=== PATIENT | female | born 1960 | race African-American/Black ===

== ENCOUNTER 2016-11-17 04:10 | Emergency (ER) | payer OTHER ==
[~2016-11-17] VITALS: Ht 167.6 cm; Wt 74.0 kg
[~2016-11-17 04:10] MED LIST: 1-ME1LIQ PO; ASPI81TA82 PO; HYDR-2768 PO; LISI-360 PO; OXYC20TA26 PO
[2016-11-17 04:13] VITALS: BP 216/129; PULSE 93; RESP 18; TEMP 98.2; O2SAT 97
[2016-11-17] MEDS ORDERED: LISI10TA3 PO (04:43)
[2016-11-17] MEDS ORDERED: HYDR25TA5 PO (04:43)
[2016-11-17] MEDS ORDERED: ASPI-110 PO (04:43)
[2016-11-17] MEDS ORDERED: OXYC20TA17 PO (04:43)
[2016-11-17 04:44] VITALS: BP 174/91; PULSE 80; RESP 16; O2SAT 100
[2016-11-17] MEDS ORDERED: ERYTOIN10 RIGHT EYE (05:48)
[2016-11-17] MEDS ORDERED: ACET500T36 PO (05:48)
--- NOTE | 2016-11-17 05:49 | PD ---
HPI Chief Complaint: Eye Problems/Injury Time Seen by Provider: 04:25 Travel History International Travel<30 days: No Contact w/Intl Traveler<30days: No Traveled to known affect area: No History of Present Illness HPI 56yo F with PMH of HTN presents to the ED with c/o foreign body sensation in right eye when she woke up this morning. She thinks an eyelash may have gotten inside her right eye. Denies any visual changes, trauma, fever, chest pain, sob , n/v, abdominal pain, weakness or numbness. PFSH Past Medical History Heart Rhythm Problems: No Cardiac Catheterization: No Cardiovascular Problems: Yes (HTN) High Cholesterol: No Congestive Heart Failure: No Diabetes: No Hypertension: Yes Menopausal: Yes : 6 Para: 6 Past Surgical History Abdominal Surgery: Yes (GASTRIC BYPASS) Section: Yes (X2) Cholecystectomy: Yes Gynecologic Surgery: Yes () Social History Alcohol Use: No Tobacco Use: Yes (1/2 PPD) Substance Use: No Allergies-Medications (Allergen,Severity, Reaction): Coded Allergies: No Known Allergies (Verified , 11/17/16) Reported Meds & Prescriptions Reported Meds & Active Scripts Active Reported Oxycontin (Oxycodone HCl) 20 Mg Tab 20 Mg PO Q12HR Lisinopril 10 Mg Tab 10 Mg PO DAILY Hydrochlorothiazide 25 Mg Tab 25 Mg PO DAILY Aspirin 81 (Aspirin) 81 Mg Tabdr 81 Mg PO DAILY Review of Systems Except as stated in HPI: all other systems reviewed are Neg Physical Exam Narrative GENERAL: 56yo F not in distress. SKIN: Warm and dry. HEAD: Atraumatic. Normocephalic. EYES: Right eye: Pupil reactive at 4mm. Injected conjunctiva. EOMI. No foreign body visualized under eyelid. Wood's lamp exam with fluorescene revealed +Corneal abrasion at 9 o'clock. ENT: No nasal bleeding or discharge. Mucous membranes pink and moist. NECK: Trachea midline. No JVD. CARDIOVASCULAR: Regular rate and rhythm. No murmur appreciated. RESPIRATORY: No accessory muscle use. Clear to auscultation. Breath sounds equal bilaterally. GASTROINTESTINAL: Abdomen soft, non-tender, nondistended. MUSCULOSKELETAL: No obvious deformities. No clubbing. No cyanosis. No edema. NEUROLOGICAL: Awake and alert. No obvious cranial nerve deficits. Motor grossly within normal limits. Normal speech. PSYCHIATRIC: Appropriate mood and affect; insight and judgment normal. Data Data Last Documented VS Vital Signs Date Time Temp Pulse Resp B/P Pulse Ox O2 Delivery O2 Flow Rate FiO2 11/17/16 04:44 80 16 174/91 100 Room Air 11/17/16 04:13 98.2 MDM Medical Decision Making Medical Screen Exam Complete: Yes Emergency Medical Condition: Yes Differential Diagnosis Corneal abrasion vs. foreign body under eyelid Narrative Course 56yo F with foreign body sensation in right eye. Visual acuity 20/20 in right eye. Pt found to have flourescene uptake in right eye. Pt wants to go home and denies any other complaints. Pt initially very hypertensive and repeat blood pressure without any medication showed improvement to 174/91. Pt has history of HTN and has not taken her HTN medications for 3 days. Instructed pt to take them and follow up with PMD. Diagnosis Primary Impression: Corneal abrasion Qualified Code: S05.01XA - Corneal abrasion, right, initial encounter Patient Instructions: General Instructions Departure Forms: Tests/Procedures Additional Instructions: Please follow up with lead radiation therapist in 3-7 days. Return to the ED if symptoms worsen. Med/Other Pt SpecificInfo: Prescription(s) given Scripts Acetaminophen (Acetaminophen Extra Strength)500 Mg [id number] Mg PO Q6H PRN (PAIN SCALE 1 TO 4) #20 TAB Ref 0 Prov:Giselle Barrera DO 11/17/16 Erythromycin Opth Oint 5 Mg/Gm Oint1 Applic RIGHT EYE BID 7 Days Ref 0 Prov:Giselle Barrera DO 11/17/16 Disposition: 01 DISCHARGE HOME Condition: Stable Giselle Barrera DO Nov 17, 2016 05:49
== END 2016-11-17 06:22 | disposition home or self-care (01) ==
LOC: NEPC 04:10
DX: S05.01XA Injury of conjunctiva and corneal abrasion without foreign body, right eye, initial encounter (principal); F17.210 Nicotine dependence, cigarettes, uncomplicated; I10 Essential (primary) hypertension; Z98.84 Bariatric surgery status; X58.XXXA Exposure to other specified factors, initial encounter
CPT/HCPCS: 99283

== ENCOUNTER 2018-02-10 17:43 | Observation (INO) | payer OTHER ==
[~2018-02-10] VITALS: Ht 167.6 cm; Wt 63.5 kg
[~2018-02-10 17:43] MED LIST changes: -1-ME1LIQ PO; +ACET500T36 PO; +ASPI1TAB57 PO; -ASPI81TA82 PO; +ERYTOIN10 RIGHT EYE; -HYDR-2768 PO; +HYDR25TA5 PO; -LISI-360 PO; +LISI10TA3 PO; +OXYC20TA17 PO; -OXYC20TA26 PO
[2018-02-10] MEDS ORDERED: IOHEXOL 350 MG/ML 10 ML VIAL (for RAD DIAG) IVCONTRAST ONE (17:44)
[2018-02-10 17:47] VITALS: BP 190/117; PULSE 94; RESP 18; TEMP 98; O2SAT 99
[2018-02-10] MEDS ORDERED: SODIUM CHLOR 0.9% 1000 ML INJ 1,000 ML IV SCH ×2 (17:54→22:31)
[2018-02-10] MEDS ORDERED: PROCHLORPERAZINE INJ 10 MG/2 ML VIAL IV PUSH ONE ×2 (18:00→20:00)
[2018-02-10] MEDS ORDERED: SODIUM CHLORIDE 0.9% FLUSH 10 ML FLUSH IV FLUSH PRN ×2 (18:00→22:45)
[2018-02-10] MEDS ORDERED: MORPHINE SULFATE 8 MG/ML INJ IV PUSH ONE (18:00)
[2018-02-10] MEDS ORDERED: diphenhydrAMINE HCL 50 MG/ML VIAL IV PUSH ONE (18:00)
[2018-02-10 18:11] LABS: AUTOMATED NEUTROPHIL # 5.4 TH/MM3 (1.8-7.7); BASOPHIL % 0.4 % (0.0-2.0); EOSINOPHIL # 0.1 TH/MM3 (0-0.4); EOSINOPHIL % 0.9 % (0.0-4.0); HEMATOCRIT 41.7 % (35.0-46.0); HEMOGLOBIN 14.4 GM/DL (11.6-15.3); LYMPHOCYTE # 2.3 TH/MM3 (1.0-4.8); MEAN CELL VOLUME 96.9 FL (80.0-100.0); MEAN CORPUSCULAR HEMOGLOBIN 33.5 PG (27.0-34.0); MEAN CORPUSCULAR HGB CONC 34.6 % (32.0-36.0); MEAN PLATELET VOLUME 7.4 FL (7.0-11.0); MONO % 4.8 % (0.0-8.0); MONOCYTE # 0.4 TH/MM3 (0-0.9); NEUT % 65.9 % (16.0-70.0); PLATELET COUNT 219 TH/MM3 (150-450); RED CELL DISTRIBUTION WIDTH 13.6 % (11.6-17.2); WHITE BLOOD COUNT 8.2 TH/MM3 (4.0-11.0)
[2018-02-10 18:12] VITALS: BP 187/91; PULSE 69; RESP 18; O2SAT 93
[2018-02-10 18:32] LABS: ALKALINE PHOSPHATASE 249 U/L (45-117); TOTAL BILIRUBIN ADULT 0.6 MG/DL (0.2-1.0); TOTAL PROTEIN 7.3 GM/DL (6.4-8.2)
--- NOTE | 2018-02-10 18:32 | PD ---
HPI Chief Complaint: Abdominal Pain Time Seen by Provider: 17:54 Travel History International Travel<30 days: No Contact w/Intl Traveler<30days: No Traveled to known affect area: No History of Present Illness HPI This is a 57-year-old female with a history of hypertension, status post gastric bypass, who presents today with complaints of abdominal pain with associated nausea vomiting. Patient states it woke her up at 3:00 this morning. She states that she has been vomiting ever since. She does report that she had a bowel movement this morning. She denies any constipation. She denies any fevers, chills. Patient reports normal urine output. She denies any previous history of pain such as this. She denies any chest pain, chest pressure. There are no other complaints at the time of my examination. PFSH Past Medical History Heart Rhythm Problems: No Cardiac Catheterization: No Cardiovascular Problems: Yes (HTN) High Cholesterol: No Congestive Heart Failure: No Diabetes: No Hypertension: Yes ?: Not Menopausal: Yes : 6 Para: 6 Past Surgical History Abdominal Surgery: Yes (GASTRIC BYPASS) Section: Yes (X2) Cholecystectomy: Yes Gynecologic Surgery: Yes () Social History Alcohol Use: No Tobacco Use: Yes (1/2 PPD) Substance Use: No Allergies-Medications (Allergen,Severity, Reaction): Coded Allergies: No Known Allergies (Verified Allergy, Unknown, 02/10/18) Reported Meds & Prescriptions Reported Meds & Active Scripts Active Reported Methadone (Methadone HCl) 40 Mg Tab 105 Mg PO DAILY Lisinopril 10 Mg Tab 10 Mg PO DAILY Hydrochlorothiazide 25 Mg Tab 25 Mg PO DAILY Aspirin 81 (Aspirin) 81 Mg Tabdr 81 Mg PO DAILY Review of Systems Except as stated in HPI: all other systems reviewed are Neg General / Constitutional: No: Fever, Chills HENT: No: Headaches, Lightheadedness, Neck Pain Cardiovascular: No: Chest Pain or Discomfort, Palpitations, Irregular Rhythm Respiratory: No: Cough, Shortness of Breath Gastrointestinal: Positive: Nausea, Vomiting, Abdominal Pain (Supraumbilical epigastric), No: Diarrhea Genitourinary: No: Frequency, Dysuria Musculoskeletal: No: Weakness, Pain Skin: No Rash Neurologic: No: Weakness, Dizziness, Headache Physical Exam Narrative GENERAL: Well-developed well-nourished female in no acute respiratory distress. Patient complaining of abdominal pain and dry heaving when I entered the room. SKIN: Focused skin assessment warm/dry. HEAD: Atraumatic. Normocephalic. EYES: Pupils equal and round. No scleral icterus. No injection or drainage. ENT: No nasal bleeding or discharge. Mucous membranes pink and moist. NECK: Trachea midline. Supple. CARDIOVASCULAR: Regular rate and rhythm. No murmur appreciated. RESPIRATORY: No accessory muscle use. Clear to auscultation. Breath sounds equal bilaterally. GASTROINTESTINAL: Abdomen soft, nondistended. Subjective tenderness in her supraumbilical and epigastric area. No rebound or guarding elicited. No pulsatile masses. MUSCULOSKELETAL: No obvious deformities. No clubbing. No cyanosis. No edema. NEUROLOGICAL: Awake and alert complaining of pain. No obvious cranial nerve deficits. Motor grossly within normal limits. Normal speech. Data Data Last Documented VS Vital Signs Date Time Temp Pulse Resp B/P (MAP) Pulse Ox O2 Delivery O2 Flow Rate FiO2 02/10/18 21:11 81 18 153/90 (111) 98 Room Air 02/10/18 17:47 98.0 Orders Orders Complete Blood Count With Diff (02/10/18 17:54) Comprehensive Metabolic Panel (02/10/18 17:54) Lipase (02/10/18 17:54) Urinalysis - C+S If Indicated (02/10/18 17:54) Iv Access Insert/Monitor (02/10/18 17:54) Ecg Monitoring (02/10/18 17:54) Oximetry (02/10/18 17:54) Sodium Chlor 0.9% 1000 Ml Inj (Ns 1000 M (02/10/18 17:54) Sodium Chloride 0.9% Flush (Ns Flush) (02/10/18 18:00) Electrocardiogram (02/10/18 17:54) Abdomen, Upright Only (02/10/18 17:54) Chest, Single Ap (02/10/18 17:54) Morphine Inj (Morphine Inj) (02/10/18 18:00) Prochlorperazine Inj (Compazine Inj) (02/10/18 18:00) Diphenhydramine Inj (Benadryl Inj) (02/10/18 18:00) Oral Contrast - Adult (02/10/18 18:30) Diatrizoildefonso Cardenas (Md Alcazar Liq) (02/10/18 19:19) Morphine Inj (Morphine Inj) (02/10/18 19:45) Ondansetron Inj (Zofran Inj) (02/10/18 20:00) Ct Abd/Pel W Iv Contrast(Rout) (02/10/18 19:47) Hydromorphone Pf Inj (Dilaudid Pf Inj) (02/10/18 20:00) Prochlorperazine Inj (Compazine Inj) (02/10/18 20:00) Lorazepam Inj (Ativan Inj) (02/10/18 20:30) Sodium Chlorid 0.9% 500 Ml Inj (Ns 500 M (02/10/18 20:30) Iohexol 350 Inj (Omnipaque 350 Inj) (02/10/18 17:44) Admit Order (Ed Use Only) (02/10/18 21:41) Labs Laboratory Tests Test 02/10/18 17:55 02/10/18 19:44 White Blood Count 8.2 TH/MM3 Red Blood Count 4.30 MIL/MM3 Hemoglobin 14.4 GM/DL Hematocrit 41.7 % Mean Corpuscular Volume 96.9 FL Mean Corpuscular Hemoglobin 33.5 PG Mean Corpuscular Hemoglobin Concent 34.6 % Red Cell Distribution Width 13.6 % Platelet Count 219 TH/MM3 Mean Platelet Volume 7.4 FL Neutrophils (%) (Auto) 65.9 % Lymphocytes (%) (Auto) 28.0 % Monocytes (%) (Auto) 4.8 % Eosinophils (%) (Auto) 0.9 % Basophils (%) (Auto) 0.4 % Neutrophils # (Auto) 5.4 TH/MM3 Lymphocytes # (Auto) 2.3 TH/MM3 Monocytes # (Auto) 0.4 TH/MM3 Eosinophils # (Auto) 0.1 TH/MM3 Basophils # (Auto) 0.0 TH/MM3 CBC Comment DIFF FINAL Differential Comment Blood Urea Nitrogen 11 MG/DL Creatinine 0.89 MG/DL Random Glucose 98 MG/DL Total Protein 7.3 GM/DL Albumin 3.7 GM/DL Calcium Level 9.0 MG/DL Alkaline Phosphatase 249 U/L Aspartate Amino Transf (AST/SGOT) 146 U/L Alanine Aminotransferase (ALT/SGPT) 132 U/L Total Bilirubin 0.6 MG/DL Sodium Level 142 MEQ/L Potassium Level 3.7 MEQ/L Chloride Level 104 MEQ/L Carbon Dioxide Level 29.9 MEQ/L Anion Gap 8 MEQ/L Estimat Glomerular Filtration Rate 80 ML/MIN Lipase 112 U/L Urine Color LIGHT-YELLOW Urine Turbidity CLEAR Urine pH 7.5 Urine Specific [place] 1.009 Urine Protein NEG mg/dL Urine Glucose (UA) NEG mg/dL Urine Ketones 10 mg/dL Urine Occult Blood TRACE Urine Nitrite NEG Urine Bilirubin NEG Urine Urobilinogen LESS THAN 2.0 MG/DL Urine Leukocyte Esterase NEG Urine RBC 5 /hpf Urine WBC LESS THAN 1 /hpf Urine Squamous Epithelial Cells 1 /hpf Urine Mucus FEW /lpf Microscopic Urinalysis Comment CULT NOT INDICATED MDM Medical Decision Making Medical Screen Exam Complete: Yes Emergency Medical Condition: Yes Differential Diagnosis Gastroenteritis versus diverticulitis versus bowel obstruction versus appendicitis versus peptic ulcer disease Narrative Course 57-year-old female presents with severe abdominal pain. Patient reports associated nausea vomiting. She states the pains been present since 3 AM. White blood cell count is within normal limits. The patient is afebrile. Patient will be signed out to Dr. Edie Manzo. She will follow-up on CTs and and electrolytes. Diagnosis Primary Impression: Abdominal pain Additional Impressions: Nausea & vomiting Study of gastric bypass Scripts Sennosides-Docusate Sodium (Docusate Sodium & Senna S 8.6-50 mg) 8.6 Mg-50 Mg Tab 1 TAB PO BID for Constipation for 60 Days, #120 TAB Prov: Sonia Gracia 02/11/18 Thiamine HCl (Gnp Vitamin B-1) 100 Mg Tab 100 MG PO DAILY for Nutritional Supplement, #30 TAB Prov: Sonia Gracia 02/11/18 Domenico Dyson MD February 10, 2018 18:32
--- NOTE | 2018-02-10 18:36 | RADRPT ---
EXAM DATE/TIME: 02/10/2018 18:13 [facility] COMPARISON: CHEST SINGLE AP, July 11, 2016, 2:36. INDICATIONS : Shortness of breath. MEDICAL HISTORY : Chronic obstructive pulmonary disease. Smoker. SURGICAL HISTORY : None. ENCOUNTER: Initial ACUITY: 1 day PAIN SCORE: 0/10 LOCATION: Bilateral chest FINDINGS: A single view of the chest demonstrates the lungs to be symmetrically aerated without evidence of mas s, infiltrate or effusion. The cardiomediastinal contours are unremarkable. Osseous structures are intact. CONCLUSION: No acute disease. Silvio Broderick MD on February 10, 2018 at 18:34 Board Certified Radiologist. This report was verified electronically.
--- NOTE | 2018-02-10 18:36 | RADRPT ---
EXAM DATE/TIME: 02/10/2018 18:18 [facility] COMPARISON: No previous studies available for comparison. INDICATIONS : Abdominal pain. MEDICAL HISTORY : Chronic obstructive pulmonary disease. Smoker. SURGICAL HISTORY : None. ENCOUNTER: Initial ACUITY: 1 day PAIN SCORE: 7/10 LOCATION: High abdomen/low chest. FINDINGS: A single erect view of the abdomen demonstrates the lower lungs to be clear. No evidence of free int raperitoneal gas. The visualized bowel loops are unremarkable. Cholecystectomy clips. CONCLUSION: No acute disease. Silvio Broderick MD on February 10, 2018 at 18:33 Board Certified Radiologist. This report was verified electronically.
[2018-02-10 18:39] LABS: ALBUMIN 3.7 GM/DL (3.4-5.0); ALT (GPT) 132 U/L (10-53); AST (GOT) 146 U/L (15-37); BICARBONATE 29.9 MEQ/L (21.0-32.0); BLOOD UREA NITROGEN 11 MG/DL (7-18); CHLORIDE 104 MEQ/L (98-107); CREATININE 0.89 MG/DL (0.50-1.00); GLOMERULAR FILTRATION RATE 80 ML/MIN (>89); GLUCOSE,RANDOM 98 MG/DL (74-106); SODIUM (NA) 142 MEQ/L (136-145)
[2018-02-10 19:11] VITALS: BP 174/97; PULSE 84; RESP 18; O2SAT 99
[2018-02-10] MEDS ORDERED: DIATRIZOATE MEGLUM/DIATRIZOATE SOD 9 ML CUP ONE (19:19)
[2018-02-10] MEDS ORDERED: MORPHINE SULFATE 4 MG/ML INJ IV PUSH ONE (19:45)
--- NOTE | 2018-02-10 19:46 | PD ---
Physical Exam Narrative General: The patient is a well-developed well-nourished female, intermittently screaming out related to abdominal pain upon my arrival to the room peer. Head and Neck exam: Head is normocephalic atraumatic. Eyes: EOMI, pupils are equal round and reactive to light. Nose: Midline septum with pink mucous membranes Mouth: Dentition unremarkable. Moist mucus membranes. Posterior oropharynx is not erythematous. No tonsillar hypertrophy. Uvula midline. Airway patent. Neck: No palpable lymphadenopathy. No nuchal rigidity. No thyromegaly. Cardiovascular: Regular rate and rhythm without murmurs, gallops, or rubs. No pulse deficit to the extremities on simultaneous auscultation and palpation of her radial artery. Lungs: Clear to auscultation bilaterally. No wheezes, rhonchi, or rales. Abdomen: Soft, prominence of the midepigastric area and tenderness on palpation of this site, no other tenderness on palpation of the other quadrants of the abdomen. Decreased bowel sounds are audible. No guarding, rebound, or rigidity. No tenderness on palpation of McBurney's point. Negative Aaron sign. Extremities: No clubbing, cyanosis, or edema. 2+ pulses in all 4 extremities. No calf tenderness on palpation. Back: No costovertebral angle tenderness to palpation. Neurologic Exam: Grossly nonfocal. Skin Exam: No rash noted. Intact skin that is warm and dry. Data Data Last Documented VS Vital Signs Date Time Temp Pulse Resp B/P (MAP) Pulse Ox O2 Delivery O2 Flow Rate FiO2 02/10/18 21:11 81 18 153/90 (111) 98 Room Air 02/10/18 17:47 98.0 Orders Orders Complete Blood Count With Diff (02/10/18 17:54) Comprehensive Metabolic Panel (02/10/18 17:54) Lipase (02/10/18 17:54) Urinalysis - C+S If Indicated (02/10/18 17:54) Iv Access Insert/Monitor (02/10/18 17:54) Ecg Monitoring (02/10/18 17:54) Oximetry (02/10/18 17:54) Sodium Chlor 0.9% 1000 Ml Inj (Ns 1000 M (02/10/18 17:54) Sodium Chloride 0.9% Flush (Ns Flush) (02/10/18 18:00) Electrocardiogram (02/10/18 17:54) Abdomen, Upright Only (02/10/18 17:54) Chest, Single Ap (02/10/18 17:54) Morphine Inj (Morphine Inj) (02/10/18 18:00) Prochlorperazine Inj (Compazine Inj) (02/10/18 18:00) Diphenhydramine Inj (Benadryl Inj) (02/10/18 18:00) Oral Contrast - Adult (02/10/18 18:30) Diatrizoate Liq ( Gastro[place] Liq) (02/10/18 19:19) Morphine Inj (Morphine Inj) (02/10/18 19:45) Ondansetron Inj (Zofran Inj) (02/10/18 20:00) Ct Abd/Pel W Iv Contrast(Rout) (02/10/18 19:47) Hydromorphone Pf Inj (Dilaudid Pf Inj) (02/10/18 20:00) Prochlorperazine Inj (Compazine Inj) (02/10/18 20:00) Lorazepam Inj (Ativan Inj) (02/10/18 20:30) Sodium Chlorid 0.9% 500 Ml Inj (Ns 500 M (02/10/18 20:30) Iohexol 350 Inj (Omnipaque 350 Inj) (02/10/18 17:44) Admit Order (Ed Use Only) (02/10/18 21:41) Labs Laboratory Tests Test 02/10/18 17:55 02/10/18 19:44 White Blood Count 8.2 TH/MM3 Red Blood Count 4.30 MIL/MM3 Hemoglobin 14.4 GM/DL Hematocrit 41.7 % Mean Corpuscular Volume 96.9 FL Mean Corpuscular Hemoglobin 33.5 PG Mean Corpuscular Hemoglobin Concent 34.6 % Red Cell Distribution Width 13.6 % Platelet Count 219 TH/MM3 Mean Platelet Volume 7.4 FL Neutrophils (%) (Auto) 65.9 % Lymphocytes (%) (Auto) 28.0 % Monocytes (%) (Auto) 4.8 % Eosinophils (%) (Auto) 0.9 % Basophils (%) (Auto) 0.4 % Neutrophils # (Auto) 5.4 TH/MM3 Lymphocytes # (Auto) 2.3 TH/MM3 Monocytes # (Auto) 0.4 TH/MM3 Eosinophils # (Auto) 0.1 TH/MM3 Basophils # (Auto) 0.0 TH/MM3 CBC Comment DIFF FINAL Differential Comment Blood Urea Nitrogen 11 MG/DL Creatinine 0.89 MG/DL Random Glucose 98 MG/DL Total Protein 7.3 GM/DL Albumin 3.7 GM/DL Calcium Level 9.0 MG/DL Alkaline Phosphatase 249 U/L Aspartate Amino Transf (AST/SGOT) 146 U/L Alanine Aminotransferase (ALT/SGPT) 132 U/L Total Bilirubin 0.6 MG/DL Sodium Level 142 MEQ/L Potassium Level 3.7 MEQ/L Chloride Level 104 MEQ/L Carbon Dioxide Level 29.9 MEQ/L Anion Gap 8 MEQ/L Estimat Glomerular Filtration Rate 80 ML/MIN Lipase 112 U/L Urine Color LIGHT-YELLOW Urine Turbidity CLEAR Urine pH 7.5 Urine Specific [place] 1.009 Urine Protein NEG mg/dL Urine Glucose (UA) NEG mg/dL Urine Ketones 10 mg/dL Urine Occult Blood TRACE Urine Nitrite NEG Urine Bilirubin NEG Urine Urobilinogen LESS THAN 2.0 MG/DL Urine Leukocyte Esterase NEG Urine RBC 5 /hpf Urine WBC LESS THAN 1 /hpf Urine Squamous Epithelial Cells 1 /hpf Urine Mucus FEW /lpf Microscopic Urinalysis Comment CULT NOT INDICATED MDM Medical Record Reviewed: Yes Supervised Visit with PAPI: No Interpretation(s) Last Impressions Abdomen/Pelvis CT 02/10/181946 Signed Impressions: Service Date/Time: Saturday, February 10, 2018 20:45 - CONCLUSION: 1. Multiple mildly dilated small bowel loops without definite obstruction. 2. Minimal ascites. 3. Postsurgical changes. 4. Cholecystectomy Silvio Broderick MD Chest X-Ray 02/10/[id number] Signed Impressions: Service Date/Time: Saturday, February 10, 2018 18:13 - CONCLUSION: No acute disease. Silvio Broderick MD Abdomen X-Ray 02/10/[id number] Signed Impressions: Service Date/Time: Saturday, February 10, 2018 18:18 - CONCLUSION: No acute disease. Silvio Broderick MD Narrative Course During the course of the patient's emergency department visit, the patient had IV access obtained and blood work sent for analysis. The patient's case was checked out to me by Dr. Dyson. The patient's case was checked out to me at the conclusion of his shift. The patient represented with abdominal pain and vomiting. The patient has a prior history of gastric bypass. The patient was initially provided by Dr. Dyson, Benadryl 50 mg IV, normal saline at 125 mL/h, Compazine IV, morphine 5 mg IV. The patient continued to be crying out in pain on change of shift, the patient was given morphine 4 mg IV. The patient continued to complain of 10 out of 10 pain and was instead given this time, hydromorphone 0.5 mg IV. The patient refused to drink the oral contrast that was ordered by Dr. Dyson for her CT scan of the abdomen and pelvis. The patient's laboratory studies were reviewed and remarkable for a CBC that is within normal limits, CMP is remarkable for GFR of 80, AST 146, ALT 132, alk phos 249, lipase 112 Radiology studies were reviewed and remarkable for an abdominal x-ray that shows no acute abnormality. Chest x-ray shows no acute abnormality. CT scan of the abdomen and pelvis shows multiple areas of distended loops of bowel. No obvious evidence of obstruction, however given the patient's intractable abdominal pain and vomiting it is suspicious. The patient will be admitted to the hospital for continued observation. The patient's results were discussed with the patient, including the plan of care. I explained that further testing and/ or monitoring is indicated based on the patient's history, examination, and/ or laboratory findings. Therefore, I recommended admission for additional evaluation. The patient expressed understanding and was agreeable with this plan. The patient was admitted to the hospital in stable condition and sent to a bed under the care of the [facility] service. Physician Communication Physician Communication The patient's case including history, pertinent physical examination findings, and laboratory studies were discussed with Dr. Beltre. It was agreed that the patient would be admitted to the [facility] service. Diagnosis Primary Impression: Abdominal pain Qualified Codes: R10.84 - Generalized abdominal pain Additional Impression: Vomiting Qualified Codes: R11.2 - Nausea with vomiting, unspecified Edie Manzo MD February 10, 2018 19:46
[2018-02-10] MEDS ORDERED: HYDROmorphone HCL PF 0.5 MG/0.5 ML SYRINGE IV PUSH ONE (20:00)
[2018-02-10] MEDS ORDERED: ONDANSETRON HCL 4 MG/2 ML VIAL IV PUSH ONE (20:00)
[2018-02-10 20:04] LABS: BILIRUBIN, URINE NEG (NEG); BLOOD, URINE TRACE (NEG); GLUCOSE,URINE NEG (NEG); KETONE, URINE 10 mg/dL (NEG); MUCUS URINE FEW /lpf (OCC); NITRITE,URINE NEG (NEG); PH, URINE 7.5 (5.0-8.5); SQUAMOUS EPITHELIAL CELL URINE 1 /hpf (0-5); URINE COLOR LIGHT-YELLOW (YELLW/STRAW); URINE LEUKOCYTE ESTERASE NEG (NEG)
[2018-02-10] MEDS ORDERED: METH40TA PO ×2 (20:15→23:10)
[2018-02-10] MEDS ORDERED: LORazepam 2 MG/ML VIAL IV PUSH ONE (20:30)
[2018-02-10] MEDS ORDERED: SODIUM CHLORID 0.9% 500 ML INJ 500 ML IV ONE (20:30)
[2018-02-10 21:11] VITALS: BP 153/90; PULSE 81; RESP 18; O2SAT 98
--- NOTE | 2018-02-10 21:14 | RADRPT ---
EXAM DATE/TIME: 02/10/2018 20:45 [facility] COMPARISON: No previous studies available for comparison. INDICATIONS : Upper abdomen pain. IV CONTRAST: 96 cc Omnipaque 350 (iohexol) IV ORAL CONTRAST: No oral contrast ingested. RADIATION DOSE: 8.55 CTDIvol (mGy) MEDICAL HISTORY : Cardiovascular disease. Hypertension. SURGICAL HISTORY : Cholecystectomy. Gastric bypass. section. ENCOUNTER: Initial ACUITY: 1 day PAIN SCALE: 10/10 LOCATION: abdomen TECHNIQUE: Volumetric scanning of the abdomen and pelvis was performed. Using automated exposure control and ad justment of the mA and/or kV according to patient size, radiation dose was kept as low as reasonably achievable to obtain optimal diagnostic quality images. DICOM format image data is available electro nically for review and comparison. FINDINGS: LOWER LUNGS: The visualized lower lungs are clear. LIVER: Homogeneous density without lesion. There is no dilation of the biliary tree. Cholecystectomy clips. SPLEEN: Normal size without lesion. PANCREAS: Within normal limits. KIDNEYS: Normal in size and shape. There is no mass, stone or hydronephrosis. ADRENAL GLANDS: Within normal limits. VASCULAR: There is no aortic aneurysm. BOWEL/MESENTERY: Multiple mildly dilated small bowel loops. Minimal ascites adjacent to liver. Anastomotic sutures in the left upper quadrant.. There is no free intraperitoneal air. There appears to be gastric bypass. ABDOMINAL WALL: Within normal limits. RETROPERITONEUM: There is no lymphadenopathy. BLADDER: No wall thickening or mass. REPRODUCTIVE: Within normal limits. INGUINAL: There is no lymphadenopathy or hernia. MUSCULOSKELETAL: Within normal limits for patient age. CONCLUSION: 1. Multiple mildly dilated small bowel loops without definite obstruction. 2. Minimal ascites. 3. Postsurgical changes. 4. Cholecystectomy Silvio Broderick MD on February 10, 2018 at 21:09 Board Certified Radiologist. This report was verified electronically.
[2018-02-10] MEDS ORDERED: ACETAMINOPHEN 325 MG TAB PO PRN (22:45)
[2018-02-10] MEDS ORDERED: METOCLOPRAMIDE HCL 10 MG/2 ML VIAL IV PUSH PRN (22:45)
[2018-02-10] MEDS ORDERED: NALOXONE HCL 0.4 MG/ML AMP IV PUSH PRN (22:45)
[2018-02-10] MEDS ORDERED: HYDROmorphone HCL PF 2 MG/ML VIAL IV PUSH PRN (23:00)
--- NOTE | 2018-02-10 23:04 | HHI.HP ---
[facility] Primary Care Physician Unknown Admission Diagnosis Intractable abdominal pain with vomiting Diagnoses: Travel History International Travel<30 Days: No Contact w/Intl Traveler <30 Da: No Traveled to Known Affected Are: No History of Present Illness 57-year-old female with a past medical history significant for hypertension presents to the emergency depart for the evaluation of abdominal pain. The patient states she awoke at 3 AM with severe abdominal pain and dry heaves with accompanying nausea. She denies any emesis. She has had nothing to eat or drink since that time. She is status post gastric bypass in 2013. The patient denies any chest pain or shortness of breath. No vomiting or diarrhea. No cough/congestion. No weakness. No lateralizing signs/symptoms. Review of Systems Except as stated in HPI: all other systems reviewed are Neg Past Family Social History Past Medical History Hypertension Chronic pain Past Surgical History Gastric bypass in 2013 Reported Medications Reported Meds & Active Scripts Active Reported Methadone (Methadone HCl) 40 Mg Tab 120 Mg PO DAILY Lisinopril 10 Mg Tab 10 Mg PO DAILY Hydrochlorothiazide 25 Mg Tab 25 Mg PO DAILY Aspirin 81 (Aspirin) 81 Mg Tabdr 81 Mg PO DAILY Allergies: Coded Allergies: No Known Allergies (Verified Allergy, Unknown, 02/10/18) Family History Negative for CAD/DM Social History Smokes approximately half a pack per day. Occasional alcohol. Denies illicit drugs. Physical Exam Vital Signs Vital Signs Date Time Temp Pulse Resp B/P (MAP) Pulse Ox O2 Delivery O2 Flow Rate FiO2 02/10/18 21:11 81 18 153/90 (111) 98 Room Air 02/10/18 20:28 18 02/10/18 19:44 18 02/10/18 19:11 84 18 174/97 (122) 99 Room Air 02/10/18 18:12 69 18 187/91 (123) 93 Room Air 02/10/18 17:47 98.0 94 18 190/117 (141) 99 Physical Exam GENERAL: -[place] female lying in bed SKIN: No rashes, ecchymoses or lesions. Cool and dry. HEAD: Atraumatic. Normocephalic. No temporal or scalp tenderness. EYES: Pupils equal round and reactive. Extraocular motions intact. No scleral icterus. No injection or drainage. ENT: Nose without bleeding, purulent drainage or septal hematoma. Throat without erythema, tonsillar hypertrophy or exudate. Uvula midline. Airway patent. NECK: Trachea midline. No JVD or lymphadenopathy. Supple, nontender, no meningeal signs. CARDIOVASCULAR: Regular rate and rhythm without murmurs, gallops, or rubs. RESPIRATORY: Clear to auscultation. Breath sounds equal bilaterally. No wheezes , rales, or rhonchi. GASTROINTESTINAL: Abdomen soft, diffusely tender to palpation, nondistended. Hyperactive bowel sounds. No hepato-splenomegaly, or palpable masses. No guarding. MUSCULOSKELETAL: Extremities without clubbing, cyanosis, or edema. No joint tenderness, effusion, or edema noted. No calf tenderness. NEUROLOGICAL: Awake and alert. Cranial nerves II through XII intact. Motor and sensory grossly within normal limits. Normal speech. Laboratory Laboratory Tests Test 02/10/18 17:55 02/10/18 19:44 White Blood Count 8.2 Red Blood Count 4.30 Hemoglobin 14.4 Hematocrit 41.7 Mean Corpuscular Volume 96.9 Mean Corpuscular Hemoglobin 33.5 Mean Corpuscular Hemoglobin Concent 34.6 Red Cell Distribution Width 13.6 Platelet Count 219 Mean Platelet Volume 7.4 Neutrophils (%) (Auto) 65.9 Lymphocytes (%) (Auto) 28.0 Monocytes (%) (Auto) 4.8 Eosinophils (%) (Auto) 0.9 Basophils (%) (Auto) 0.4 Neutrophils # (Auto) 5.4 Lymphocytes # (Auto) 2.3 Monocytes # (Auto) 0.4 Eosinophils # (Auto) 0.1 Basophils # (Auto) 0.0 CBC Comment DIFF FINAL Differential Comment Blood Urea Nitrogen 11 Creatinine 0.89 Random Glucose 98 Total Protein 7.3 Albumin 3.7 Calcium Level 9.0 Alkaline Phosphatase 249 Aspartate Amino Transf (AST/SGOT) 146 Alanine Aminotransferase (ALT/SGPT) 132 Total Bilirubin 0.6 Sodium Level 142 Potassium Level 3.7 Chloride Level 104 Carbon Dioxide Level 29.9 Anion Gap 8 Estimat Glomerular Filtration Rate 80 Lipase 112 Urine Color LIGHT-YELLOW Urine Turbidity CLEAR Urine pH 7.5 Urine Specific [place] 1.009 Urine Protein NEG Urine Glucose (UA) NEG Urine Ketones 10 Urine Occult Blood TRACE Urine Nitrite NEG Urine Bilirubin NEG Urine Urobilinogen LESS THAN 2.0 Urine Leukocyte Esterase NEG Urine RBC 5 Urine WBC LESS THAN 1 Urine Squamous Epithelial Cells 1 Urine Mucus FEW Microscopic Urinalysis Comment CULT NOT INDICATED Result Diagram: 02/10/18175402/10/181754 Caprini VTE Risk Assessment Caprini VTE Risk Assessment: No/Low Risk (score <= 1) Caprini Risk Assessment Model Point Value = 1 Point Value = 2 Point Value = 3 Point Value = 5 Age 41-60 Minor surgery BMI > 25 kg/m2 Swollen legs Varicose veins or History of unexplained or recurrent spontaneous Oral contraceptives or hormone replacement Sepsis (< 1 month) Serious lung disease, including pneumonia (< 1 month) Abnormal pulmonary function Acute myocardial infarction Congestive heart failure (< 1 month) History of inflammatory bowel disease Medical patient at bed rest Age 61-74 Arthroscopic surgery Major open surgery (> 45 min) Laparoscopic surgery (> 45 min) Malignancy Confined to bed (> 72 hours) Immobilizing plaster cast Central venous access Age >= 75 History of VTE Family history of VTE Factor V Leiden Prothrombin [id number] Lupus anticoagulant Anticardiolipin antibodies Elevated serum homocysteine Heparin-induced thrombocytopenia Other congenital or acquired thrombophilia Stroke (< 1 month) Elective arthroplasty Hip, pelvis, or leg fracture Acute spinal cord injury (< 1 month) Prophylaxis Regimen Total Risk Factor Score Risk Level Prophylaxis Regimen 0-1 Low Early ambulation 2 Moderate Order ONE of the following: *Sequential Compression Device (SCD) *Heparin 5000 units SQ BID 3-4 Higher Order ONE of the following medications: *Heparin 5000 units SQ TID *Enoxaparin/Lovenox 40 mg SQ daily (WT < 150 kg, CrCl > 30 mL/min) *Enoxaparin/Lovenox 30 mg SQ daily (WT < 150 kg, CrCl > 10-29 mL/min) *Enoxaparin/Lovenox 30 mg SQ BID (WT < 150 kg, CrCl > 30 mL/min) AND/OR *Sequential Compression Device (SCD) 5 or more Highest Order ONE of the following medications: *Heparin 5000 units SQ TID (Preferred with Epidurals) *Enoxaparin/Lovenox 40 mg SQ daily (WT < 150 kg, CrCl > 30 mL/min) *Enoxaparin/Lovenox 30 mg SQ daily (WT < 150 kg, CrCl > 10-29 mL/min) *Enoxaparin/Lovenox 30 mg SQ BID (WT < 150 kg, CrCl > 30 mL/min) AND *Sequential Compression Device (SCD) Assessment and Plan Assessment and Plan Assessment/plan: 1. Abdominal pain CT of the abdomen/pelvis shows mildly dilated small bowel loops without definite obstruction, concern for partial or complete small bowel obstruction General surgery consulted, appreciate recommendations N.p.o. Dilaudid for pain Will place NG tube if patient starts vomiting 2. Hypertension Continue home medications 3. Chronic pain Patient on home methadone Continue once dosing confirmed 4. Transaminitis Unknown etiology Patient is status post cholecystectomy Hepatitis profile pending Monitor FEN NPO Electrolytes: Monitor and replete as needed NS at 100 cc/hour Graciela Beltre MD February 10, 2018 23:04
[2018-02-10 23:18] VITALS: BP 135/86; PULSE 77; RESP 16; O2SAT 98
[2018-02-10 23:36] VITALS: BP 156/98; PULSE 76; RESP 22; TEMP 99; O2SAT 99
[2018-02-11 03:07] VITALS: BP 131/74; PULSE 68; RESP 17; TEMP 98.7; O2SAT 97
[2018-02-11 06:14] LABS: AUTOMATED NEUTROPHIL # 5.4 TH/MM3 (1.8-7.7); BASOPHIL # 0.1 TH/MM3 (0-0.2); BASOPHIL % 0.9 % (0.0-2.0); EOSINOPHIL # 0.1 TH/MM3 (0-0.4); EOSINOPHIL % 0.8 % (0.0-4.0); HEMATOCRIT 36.9 % (35.0-46.0); HEMOGLOBIN 12.5 GM/DL (11.6-15.3); LYMPH % 26.8 % (9.0-44.0); LYMPHOCYTE # 2.3 TH/MM3 (1.0-4.8); MEAN CELL VOLUME 97.5 FL (80.0-100.0); MEAN CORPUSCULAR HEMOGLOBIN 33.1 PG (27.0-34.0); MEAN PLATELET VOLUME 7.7 FL (7.0-11.0); MONO % 7.9 % (0.0-8.0); MONOCYTE # 0.7 TH/MM3 (0-0.9); NEUT % 63.6 % (16.0-70.0); PLATELET COUNT 183 TH/MM3 (150-450); RED BLOOD COUNT 3.78 MIL/MM3 (4.00-5.30); RED CELL DISTRIBUTION WIDTH 13.5 % (11.6-17.2); WHITE BLOOD COUNT 8.5 TH/MM3 (4.0-11.0)
[2018-02-11 06:36] LABS: ALBUMIN 2.8 GM/DL (3.4-5.0); ALT (GPT) 88 U/L (10-53); AST (GOT) 88 U/L (15-37); BICARBONATE 28.9 MEQ/L (21.0-32.0); BLOOD UREA NITROGEN 7 MG/DL (7-18); CALCIUM 7.9 MG/DL (8.5-10.1); CHLORIDE 111 MEQ/L (98-107); CREATININE 0.63 MG/DL (0.50-1.00); GLOMERULAR FILTRATION RATE 119 ML/MIN (>89); GLUCOSE,RANDOM 72 MG/DL (74-106); SODIUM (NA) 146 MEQ/L (136-145)
[2018-02-11 06:37] LABS: ALKALINE PHOSPHATASE 187 U/L (45-117); TOTAL BILIRUBIN ADULT 0.7 MG/DL (0.2-1.0)
--- NOTE | 2018-02-11 07:56 | HHI.PR ---
Subjective Remarks Follow-up abdominal pain February 11, 2018-patient seen and examined, reported improvement of abdominal pain she has had 3 bowel movement since admission. She denies nausea or vomiting. Patient endorses a history of alcohol abuse states she drinks 1 bottle of vodka per day Objective Vitals Vital Signs Date Time Temp Pulse Resp B/P (MAP) Pulse Ox O2 Delivery O2 Flow Rate FiO2 02/11/18 03:07 98.7 68 17 131/74 (93) 97 02/10/18 23:38 02/10/18 23:36 99.0 76 22 156/98 (117) 99 02/10/18 23:18 77 16 135/86 (102) 98 Room Air 02/10/18 21:11 81 18 153/90 (111) 98 Room Air 02/10/18 20:28 18 02/10/18 19:44 18 02/10/18 19:11 84 18 174/97 (122) 99 Room Air 02/10/18 18:12 69 18 187/91 (123) 93 Room Air 02/10/18 17:47 98.0 94 18 190/117 (141) 99 I/O 02/10/18 02/10/18 02/10/18 02/11/18 02/11/18 02/11/18 07:00 15:00 23:00 07:00 15:00 23:00 Intake Total 1500 ml 200 ml Balance 1500 ml 200 ml Intake IV Total 1500 ml 200 ml Result Diagram: 02/11/18 0552 02/11/18 0552 Imaging Last Impressions Abdomen/Pelvis CT 02/10/181946 Signed Impressions: Service Date/Time: Saturday, February 10, 2018 20:45 - CONCLUSION: 1. Multiple mildly dilated small bowel loops without definite obstruction. 2. Minimal ascites. 3. Postsurgical changes. 4. Cholecystectomy Silvio Broderick MD Chest X-Ray 02/10/181753 Signed Impressions: Service Date/Time: Saturday, February 10, 2018 18:13 - CONCLUSION: No acute disease. Silvio Broderick MD Abdomen X-Ray 02/10/181753 Signed Impressions: Service Date/Time: Saturday, February 10, 2018 18:18 - CONCLUSION: No acute disease. Silvio Broderick MD Objective Remarks GENERAL: NAD SKIN: Warm and dry. HEAD: Normocephalic. EYES: No scleral icterus. No injection or drainage. NECK: Supple, trachea midline. No JVD or lymphadenopathy. CARDIOVASCULAR: Regular rate and rhythm without murmurs, gallops, or rubs. RESPIRATORY: Breath sounds equal bilaterally. No accessory muscle use. GASTROINTESTINAL: Abdomen soft, non-tender, nondistended. +BS MUSCULOSKELETAL: No cyanosis, or edema. BACK: Nontender without obvious deformity. No CVA tenderness. A/P Problem List: (1) Abdominal pain ICD Code: R10.9 - Unspecified abdominal pain Status: Acute (2) Alcohol abuse ICD Code: F10.10 - Alcohol abuse, uncomplicated Assessment and Plan 57-year-old female with Abdominal pain CT abdomen noted in review with questionable partial bowel obstruction for which general surgery was consulted, however patient now with improvement of abdominal pain and now with 3 bowel movements since admission. She also denies any further episode of nausea vomiting. Therefore will cancel general surgery consult Start full liquid diet and advance as tolerated Hypertension Continue home medications Chronic pain Patient on home methadone Continue once dosing confirmed Transaminitis Unknown etiology, however patient reports history of daily alcohol consumption And CT abdomen and pelvis with evidence of minimal ascites Hepatitis profile panel pending Alcohol abuse Alcohol counseling cessation provided Start CIWA protocol, rally pack Discharge Planning Discharge patient to home Condition on discharge: Improved Regular Diet as tolerated Ad Mariana activity Rx written:None Follow-up with primary care physician in 1 week Problem Qualifiers (1) Abdominal pain: Qualified Codes: R10.84 - Generalized abdominal pain Silvio Mcdaniel MD February 11, 2018 07:56
[2018-02-11 07:57] VITALS: BP 130/74; PULSE 72; RESP 16; TEMP 98.2; O2SAT 98
[2018-02-11] MEDS ORDERED: FLUMAZENIL 0.5 MG/5 ML VIAL IV PUSH PRN (08:00)
[2018-02-11] MEDS ORDERED: LORazepam 2 MG/ML VIAL IV PUSH PRN ×4 (08:00)
[2018-02-11] MEDS ORDERED: LORazepam 2 MG TAB PO PRN (08:00)
[2018-02-11] MEDS ORDERED: LORazepam 1 MG TAB PO PRN (08:00)
[2018-02-11] MEDS ORDERED: THIAMINE HCL 100 MG TAB PO SCH (09:00)
[2018-02-11] MEDS ORDERED: SODIUM CHLORIDE 0.9% FLUSH 10 ML FLUSH IV FLUSH SCH (09:00)
[2018-02-11] MEDS ORDERED: LISINOPRIL 10 MG TAB PO SCH (09:00)
[2018-02-11] MEDS ORDERED: HYDROCHLOROTHIAZIDE 25 MG TAB PO SCH (09:00)
[2018-02-11] MEDS ORDERED: ASPIRIN EC 81 MG TABEC PO SCH (09:00)
[2018-02-11] MEDS ORDERED: THIA100 PO (10:20)
[2018-02-11] MEDS ORDERED: SENN8.6T13 PO (10:20)
[2018-02-11] MEDS ORDERED: LACTULOSE SYRUP 20 GM/30 ML CUP PO ONE (10:45)
[2018-02-11] MEDS ORDERED: BISACODYL 10 MG SUPP RECTAL ONE (10:45)
--- NOTE | 2018-02-11 13:41 | HHI.DCPOC ---
Discharge Care Plan Diagnosis: (1) Abdominal pain (2) Vomiting Your Health Problems Are: Chronic Pain Goals to Promote Your Health * To prevent worsening of your condition and complications * To maintain your health at the optimal level Directions to Meet Your Goals Take your medications as prescribed Follow your dietary instruction Follow activity as directed Keep your appointments as scheduled Take your immunizations and boosters as scheduled If your symptoms worsen call your PCP, if no PCP go to Urgent Care Center or Emergency Room Smoking is Dangerous to Your Health. Avoid second hand smoke Call the 24-hour hour crisis hotline for domestic abuse at [facility] February 11, 2018 13:41
--- NOTE | 2018-02-11 18:31 | EKG ---
Date Performed: 02/10/2018 Time Performed: 18:06:07 PTAGE: 57 years EKG: Sinus rhythm NONSPECIFIC T-WAVE ABNORMALITY BORDERLINE ECG Since the PREVIOUS TRACING , no significant change noted PREVIOUS TRACIN07/11/2016 08.46 DOCTOR: Buck Sen Interpretating Date/Time 02/11/2018 18:30:34
== END 2018-02-11 15:45 | disposition home or self-care (01) ==
LOC: NEPE 17:43 → NEDA 21:42 → NEPFCDU 23:30
PROVIDERS: ADMIT Hospitalist; ATTEND Hospitalist
DX: R10.84 Generalized abdominal pain (principal); I10 Essential (primary) hypertension; J44.9 Chronic obstructive pulmonary disease, unspecified; G89.29 Other chronic pain; R11.2 Nausea with vomiting, unspecified; F10.10 Alcohol abuse, uncomplicated; R74.0 Nonspecific elevation of levels of transaminase and lactic acid dehydrogenase [LDH]; F17.200 Nicotine dependence, unspecified, uncomplicated; Z79.899 Other long term (current) drug therapy; Z79.82 Long term (current) use of aspirin; Z98.84 Bariatric surgery status
CPT/HCPCS: 71045; 74018; 74177; 76937; 80053; 80074; 81001; 83690; 85025; 93005; 96361; 96374; 96375; 96376; 99285; G0378; J0780; J1170; J1200; J2060; J2270; J7030; J7040; Q9963; Q9967